=== PATIENT | female | born 1970 | race American Indian/Alaskan Native ===

== ENCOUNTER 2017-12-10 00:03 | Emergency (ER) | payer BC ==
[2017-12-10 00:17] VITALS: BP 160/90; PULSE 80; RESP 14; TEMP 98; O2SAT 99
[2017-12-10] MEDS ORDERED: Bacitracin 500 Units/gm Oint Foilpak UD ONE (00:48)
[2017-12-10] MEDS ORDERED: Bacitracin 500 Units/gm Oint Foilpak UD TOP ONE (00:51)
--- NOTE | 2017-12-10 00:53 | C.PDOC ---
History Of Present Illness 47 year old female presents to the ER with a complaint of pain and redness to the left hand. Patient states she spilled hot wax on her bilatreal hands 1 month ago that has been healing well, however, over the past week the left hand has gotten red and painful. Patient is also requesting a refill of her HTN medication. Denies new injury, fever, weakness, or numbness. Time Seen by Provider: 12/10/17 00:21 Chief Complaint (Nursing): Abnormal Skin Integrity History Per: Patient History/Exam Limitations: no limitations Onset/Duration Of Symptoms: Days Current Symptoms Are (Timing): Still Present Location Of Injury: Left: Hand Quality Of Symptoms: Painful, Other (Redness) Recent travel outside of the [place]: No Past Medical History Reviewed: Historical Data, Nursing Documentation, Vital Signs Vital Signs: Last Vital Signs Temp 98 F 12/10/17 00:13 Pulse 80 12/10/17 00:13 Resp 14 12/10/17 00:13 BP 160/90 H 12/10/17 00:13 Pulse Ox 99 12/10/17 02:46 - Medical History PMH: Anemia, HTN Family History: States: Unknown Family Hx - Social History Hx Tobacco Use: No Hx Alcohol Use: No Hx Substance Use: No - Immunization History Hx Tetanus Toxoid Vaccination: No Hx Influenza Vaccination: No Hx Pneumococcal Vaccination: No Review Of Systems Constitutional: Negative for: Fever Musculoskeletal: Positive for: Hand Pain (w/ redness) Neurological: Negative for: Weakness, Numbness Physical Exam - Physical Exam Appears: Non-toxic, No Acute Distress Skin: Warm, Dry Head: Atraumatic, Normacephalic Eye(s): bilateral: Normal Inspection, PERRL, EOMI Oral Mucosa: Moist Extremity: Normal ROM (x4), Capillary Refill (<2 seconds), No Deformity, Other ( 6x4cm healing 2nd degree burn to dorsal aspect of left hand over the 1st and 2nd metacarpal with erythema, sweling, and tenderness to center, ) Pulses: Left Radial: Normal, Right Radial: Normal Neurological/Psych: Oriented x3, Normal Speech, Normal Motor Gait: Steady ED Course And Treatment O2 Sat by Pulse Oximetry: 99 (Room air) Pulse Ox Interpretation: Normal Medical Decision Making Medical Decision Making: Burn cleansed with soap and sterile saline, bacitracin and sterile dressing applied by RN. Will discharge home on keflex and instructions to follow up with PMD or return if symptoms worsen. Disposition - Disposition Referrals: [facility] at [facility] [Outside] Disposition: HOME/ ROUTINE Disposition Time: 00:51 Condition: GOOD Additional Instructions: Follow up with the medical doctor/burn clinic within 1-2 days without fail. Return if worsened. [facility] [address] [place], [place] [phone] Prescriptions: Carvedilol [Coreg] 6.25 mg PO BID #60 tablet Cephalexin [Keflex] 500 mg PO BID #14 capsule Honey [Medihoney] 103 ml TP BID #1 paste..ml. Ibuprofen [Motrin] 600 mg PO TID #21 tab Lisinopril/Hydrochlorothiazide [Lisinopril-Hctz 10-12.5 mg Tab] 1 each PO DAILY #30 tablet Mupirocin 2% Cream [Bactroban 2%] 30 gm EXT BID #2 tube Instructions: Skin Guevara, Cellulitis (Skin Infection), Adult (DC) Forms: [employer] (Jordanian) - Clinical Impression Clinical Impression: Cellulitis, Second degree burn - PA / TIE TAMPER / Resident Statement MD/DO has reviewed & agrees with the documentation as recorded. - Scribe Statement The provider has reviewed the documentation as recorded by the Scribdenisha Warren All medical record entries made by the Jadaibdenisha were at my direction and personally dictated by me. I have reviewed the chart and agree that the record accurately reflects my personal performance of the history, physical exam, medical decision making, and the department course for this patient. I have also personally directed, reviewed, and agree with the discharge instructions and disposition.
== END 2017-12-10 01:01 | disposition home or self-care (01) ==
LOC: C.ER 00:03
DX: L03.114 Cellulitis of left upper limb (principal); T23.262A Burn of second degree of back of left hand, initial encounter; X19.XXXA Contact with other heat and hot substances, initial encounter

== ENCOUNTER 2018-01-04 19:16 | Emergency (ER) | payer BC ==
--- NOTE | 2018-01-04 19:58 | C.PDOC ---
History Of Present Illness Patient is a 47 y/o female who presents to the ED with a complaint of a headache since 8 days ago. Patient notes headache has worsened for the last 4 days, describing pain as a diffuse, dull, aching headache. Patient reports to have almost lost consciousness, but caught herself mid-fall. Admits to being compliant with blood pressure medications; denies any photophobia, visual changes, or weakness. Patient has no other physical complaints at this time. Time Seen by Provider: 01/04/18 19:58 Chief Complaint (Nursing): Dizziness/Lightheaded History Per: Patient History/Exam Limitations: no limitations Onset/Duration Of Symptoms: Days (8 days), Worse Since (4 days ago) Current Symptoms Are (Timing): Still Present Activity At Onset Of Symptoms: Standing Fall Associated With With Symptoms: No Severity: Moderate Pain Scale Rating Of: 4 Past Medical History Reviewed: Historical Data, Nursing Documentation, Vital Signs Vital Signs: Last Vital Signs Temp 98 F 01/04/18 19:39 Pulse 84 01/04/18 20:23 Resp 16 01/04/18 20:23 BP 126/86 01/04/18 20:23 Pulse Ox 100 01/04/18 21:46 - Medical History PMH: Anemia, HTN Surgical History: No Surg Hx Family History: States: No Known Family Hx - Social History Hx Tobacco Use: No Hx Alcohol Use: No Hx Substance Use: No - Immunization History Hx Tetanus Toxoid Vaccination: No Hx Influenza Vaccination: No Hx Pneumococcal Vaccination: No Review Of Systems Eyes: Positive for: Other (negative photophobia). Negative for: Vision Change Cardiovascular: Negative for: Chest Pain Respiratory: Negative for: Shortness of Breath Neurological: Positive for: Headache. Negative for: Weakness Physical Exam - Physical Exam Appears: Well, Non-toxic, No Acute Distress Skin: Warm, Dry Head: Normacephalic Eye(s): bilateral: Normal Inspection, PERRL, EOMI Oral Mucosa: Moist Chest: Symmetrical Cardiovascular: Rhythm Regular, No Murmur Respiratory: Normal Breath Sounds, No Rales, No Rhonchi, No Wheezing Gastrointestinal/Abdominal: Soft, No Tenderness Neurological/Psych: Oriented x3, Normal Motor, Normal Sensation, Other (no focal deficits) Gait: Steady ED Course And Treatment - Laboratory Results Result Diagrams: 01/04/18 20:16 03/15/18 20:16 ECG: Interpreted By Me, Viewed By Me ECG Rhythm: Sinus Rhythm, Nonspecific Changes O2 Sat by Pulse Oximetry: 100 Pulse Ox Interpretation: Normal - CT Scan/US Head Other Rad Studies (CT/US): Interpreted By Me, Read By Radiologist CT/US Interpretation: EXAM: CT Head Without Intravenous Contrast. CLINICAL HISTORY: 47 years old, female; Signs and symptoms; Altered mental status/ memory loss; Confusion or. disorientation; Additional info: AMS. TECHNIQUE: Axial computed tomography images of the head/brain without intravenous contrast. All CT scans at. this facility use one or more dose reduction techniques, viz.: automated exposure control; ma/kV. adjustment per patient size (including targeted exams where dose is matched to indication; i.e. head); . or iterative reconstruction technique. Coronal and sagittal reformatted images were created and reviewed. COMPARISON: No relevant prior studies available. FINDINGS: Brain: No hemorrhage. No significant white matter disease. No edema. Ventricles: No hydrocephalus. Bones: Fracture deformity involving the right medial orbital wall/lamina papyracea. Correlate. clinically if this is chronic. Skull is intact. Sinuses: No acute sinusitis. Mastoid air cells: No mastoid effusion. Streak artifact from palate clips in hair, limits evaluation. IMPRESSION: No CT evidence of acute intracranial abnormality. Fracture deformity involving the right medial orbital wall/lamina papyracea. Correlate clinically if this. is chronic. Streak artifact from palate clips in hair, limits evaluation. Progress Note: Blood work, CT head, drug screen, and UA ordered. Toradol administered. Reevaluation Time: 22:24 Reassessment Condition: Improved Medical Decision Making Medical Decision Making: Upon provider reevaluation patient is feeling better, is medically stable, and requires no further treatment in the ED at this time. Patient will be discharged home with Rx for zofran and toradol. Counseling was provided and all questions were answered regarding diagnosis and need for follow up with the referred clinic. There is agreement to discharge plan. Return if symptoms persist or worsen. Disposition Counseled Patient/Family Regarding: Studies Performed, Diagnosis, Need For Followup - Disposition Referrals: [facility] at [facility] [Outside] Disposition: HOME/ ROUTINE Disposition Time: 19:58 Condition: FAIR Additional Instructions: Please return if symptoms recur Prescriptions: Ketorolac Tromethamine [Toradol] 10 mg PO TID PRN #15 tab PRN Reason: Pain, Moderate (4-7) Ondansetron ODT [Zofran ODT] 1 odt PO BID PRN #10 odt PRN Reason: Nausea/Vomiting Instructions: Headache, Adult (DC) Forms: [employer] (Telugu) - Clinical Impression Clinical Impression: Headache - Scribe Statement The provider has reviewed the documentation as recorded by the Scribe Mago Anglin All medical record entries made by the Scribe were at my direction and personally dictated by me. I have reviewed the chart and agree that the record accurately reflects my personal performance of the history, physical exam, medical decision making, and the department course for this patient. I have also personally directed, reviewed, and agree with the discharge instructions and disposition.
[2018-01-04 20:21] LABS: BASO # 0.1 K/uL (0.0-0.2); EOS # 0.2 K/uL (0.0-0.7); EOS % 2.6 % (0.0-4.0); HEMOGLOBIN 9.5 g/dL (11.0-16.0); LYMPH # 1.7 K/uL (1.0-4.3); LYMPH % 27.5 % (20.0-40.0); MEAN CELL VOLUME 79.6 fL (81.0-99.0); MEAN CORPUSCULAR HEMOGLOBIN 25.3 pg (27.0-31.0); MEAN CORPUSCULAR HGB CONC 31.8 g/dL (33.0-37.0); MEAN PLATELET VOLUME 7.7 fL (7.2-11.7); MONO # 0.8 K/uL (0.0-0.8); MONO % 13.4 % (0.0-10.0); NEUT # 3.4 K/uL (1.8-7.0); NEUT % 55.5 % (50.0-75.0); NRBC % 0.1 % (0.0-2.0); RBC 3.75 Mil/uL (3.80-5.20); RED CELL DISTRIBUTION WIDTH 15.5 % (11.5-14.5); VENOUS BLOOD GAS BASE EXCESS 5.8 mmol/L (0.0-2.0); VENOUS BLOOD GAS PCO2 50 mmHg (40-60); VENOUS BLOOD GAS PO2 29 mm/Hg (30-55); VENOUS BLOOD PH 7.41 (7.32-7.43); WHITE BLOOD COUNT 6.1 K/uL (4.8-10.8)
[2018-01-04 20:28] LABS: PROTHROMBIN TIME 11.5 SECONDS (9.7-12.2)
[2018-01-04 20:32] LABS: ALB/GLOB RATIO 1.1 (1.0-2.1); ALBUMIN 3.9 g/dL (3.5-5.0); ALT/SGPT 28 U/L (9-52); AST/SGOT 19 U/L (14-36); BLOOD UREA NITROGEN 17 mg/dL (7-17); CALCIUM 8.8 mg/dl (8.6-10.4); GFR AFRICAN-AMERICAN > 60; GFR NON-AFRICAN AMERICAN 53
--- NOTE | 2018-01-04 21:24 | CT ---
EXAM: CT Head Without Intravenous Contrast CLINICAL HISTORY: 47 years old, female; Signs and symptoms; Altered mental status/memory loss; Confusion or disorientation; Additional info: AMS TECHNIQUE: Axial computed tomography images of the head/brain without intravenous contrast. All CT scans at this facility use one or more dose reduction techniques, viz.: automated exposure control; ma/kV adjustment per patient size (including targeted exams where dose is matched to indication; i.e. head); or iterative reconstruction technique. Coronal and sagittal reformatted images were created and reviewed. COMPARISON: No relevant prior studies available. FINDINGS: Brain: No hemorrhage. No significant white matter disease. No edema. Ventricles: No hydrocephalus. Bones: Fracture deformity involving the right medial orbital wall/lamina papyracea. Correlate clinically if this is chronic. Skull is intact. Sinuses: No acute sinusitis. Mastoid air cells: No mastoid effusion. Streak artifact from palate clips in hair, limits evaluation. IMPRESSION: No CT evidence of acute intracranial abnormality. Fracture deformity involving the right medial orbital wall/lamina papyracea. Correlate clinically if this is chronic. Streak artifact from palate clips in hair, limits evaluation.
[2018-01-04 22:46] VITALS: BP 110/75; PULSE 82; RESP 18; TEMP 97.9; O2SAT 98
== END 2018-01-04 22:44 | disposition home or self-care (01) ==
LOC: C.ER 19:16
DX: R51 Headache (principal)
CPT/HCPCS: 70450; 80053; 82803; 85025; 85610; 85730; 96374; 99285; G0480; J1885